=== PATIENT | male | born 1990 | race Caucasian/White ===

== ENCOUNTER 2019-03-12 09:19 | Emergency (ER) | payer MEDICAID ==
--- NOTE | 2019-03-12 09:47 | ED Physician Documentation ---
History of Present Illness - Stated complaint Stated Complaint: RECTAL BLEEDING - Chief complaint Chief Complaint: General - History obtained from History obtained from: Patient - Additonal information Additional information: Patient is a previously healthy 29-year-old male presenting with bright red blood per rectum over the past several days with large amount just prior to arrival. Patient does report pain with bowel movements. Patient denies known hemorrhoids, other inciting incident, trauma, or insertion of object into his bottom. Patient denies abdominal pain, nausea, vomiting, urinary changes, fever, chills, or other concerns. Patient denies further use of medications [id number] or prescription. No other improving or worsening factors noted. Review of Systems Constitutional: denies: Fever GI: reports: Bloody / black stool. denies: Abdominal Pain, Vomiting, Diarrhea : denies: Dysuria PD PAST MEDICAL HISTORY - Past Medical History Cardiovascular: None Respiratory: None Neuro: Headaches, Other Endocrine/Autoimmune: None GI: None : None HEENT: None Psych: None Musculoskeletal: None Derm: None Other Past Medical History: pt describes "blackouts" with headache occasionally - Past Surgical History Past Surgical History: No - Present Medications Home Medications: Ambulatory Orders Medication Instructions Recorded Confirmed Hydrocortisone/Pramoxine [Analpram 1 strip RC QID PRN 14 Days 03/12/19 Hc 2.5% Crm Singles] cream.appl - Allergies Allergies/Adverse Reactions: Allergies Allergy/AdvReac Type Severity Reaction Status Date / Time No Known Drug Allergies Allergy Verified 03/12/19 09:25 - Social History Does the pt smoke?: Yes Smoking Status: Current some day smoker Does the pt drink ETOH?: Yes ETOH Use: Beer Does the pt have substance abuse?: Yes Substance Use and Type: Marijuana - Immunizations Immunizations are current?: No Immunizations: No immun - POLST Patient has POLST: No PD ED PE NORMAL - Vitals Vital signs reviewed: Yes - General General: Alert and oriented X 3, No acute distress, Well developed/nourished - HEENT HEENT: Atraumatic, Moist mucous membranes - Cardiac Cardiac: RRR, No murmur - Respiratory Respiratory: No respiratory distress, Clear bilaterally - Abdomen Abdomen: Normal bowel sounds, Soft, Non tender, Non distended - Male 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 ) - Derm Derm: Normal color, Warm and dry, No rash - Extremities Extremities: No deformity, No tenderness to palpate - Neuro Neuro: Alert and oriented X 3, No motor deficit, No sensory deficit - Psych Psych: Normal mood, Normal affect Results - Vitals Vitals: Vital Signs - 24 hr 03/12/19 03/12/19 03/12/19 09:21 12:20 13:58 Temperature 36.6 C 36.7 C 36.6 C Heart Rate 93 73 70 Respiratory 14 20 16 Rate Blood Pressure 132/88 H 141/97 H 151/90 H O2 Saturation 98 100 100 Oxygen O2 Source Room air - Labs Labs: Laboratory Tests 03/12/19 03/12/19 03/12/19 10:19 10:19 10:19 WBC 5.8 RBC 5.29 Hgb 16.4 Hct 47.6 MCV 90.0 MCH 31.0 MCHC 34.5 RDW 11.8 L Plt Count 236 MPV 10.6 Neut # (Auto) 3.8 Lymph # (Auto) 1.1 L Ida # (Auto) 0.6 Eos # (Auto) 0.2 Baso # (Auto) 0.0 Absolute Nucleated RBC 0.00 Nucleated RBC % 0.0 PT 11.5 INR 1.0 APTT 33.1 Sodium Potassium Chloride Carbon Dioxide Anion Gap BUN Creatinine Estimated GFR (MDRD) Glucose Calcium Total Bilirubin AST ALT Alkaline Phosphatase Total Protein Albumin Globulin Albumin/Globulin Ratio Lipase Urine Color Urine Clarity Urine pH Ur Specific [place] Urine Protein Urine Glucose (UA) Urine Ketones Urine Occult Blood Urine Nitrite Urine Bilirubin Urine Urobilinogen Ur Leukocyte Esterase Ur Microscopic Review Urine Culture Comments Blood Type O POSITIVE Blood Type Recheck Antibody Screen NEGATIVE 03/12/19 03/12/19 03/12/19 10: 10:25 11:40 WBC RBC Hgb Hct MCV MCH MCHC RDW Plt Count MPV Neut # (Auto) Lymph # (Auto) Ida # (Auto) Eos # (Auto) Baso # (Auto) Absolute Nucleated RBC Nucleated RBC % PT INR APTT Sodium 140 Potassium 4.2 Chloride 104 Carbon Dioxide 24 Anion Gap 12.0 BUN 21 H Creatinine 0.9 Estimated GFR (MDRD) 99 Glucose 94 Calcium 9.5 Total Bilirubin 0.9 AST 29 ALT 33 Alkaline Phosphatase 74 Total Protein 7.5 Albumin 4.4 Globulin 3.1 Albumin/Globulin Ratio 1.4 Lipase 51 Urine Color YELLOW Urine Clarity CLEAR Urine pH 6.0 Ur Specific [place] 1.015 Urine Protein NEGATIVE Urine Glucose (UA) NEGATIVE Urine Ketones NEGATIVE Urine Occult Blood NEGATIVE Urine Nitrite NEGATIVE Urine Bilirubin NEGATIVE Urine Urobilinogen 0.2 (NORMAL) Ur Leukocyte Esterase NEGATIVE Ur Microscopic Review NOT INDICATED Urine Culture Comments NOT INDICATED Blood Type Blood Type Recheck O POSITIVE Antibody Screen PD MEDICAL DECISION MAKING - ED course Complexity details: reviewed results, re-evaluated patient, considered differential, d/w patient ED course: Patient presenting with bright red blood per rectum and on exam, has but not erythematous or thrombosed hemorrhoid tender present which is likely the source of bleeding. At this time, have lower suspicion for GI bleed given patient's lack of significant risk factors, abdominal pain, or other abdominal complaints. Also have lower suspicion for intra-abdominal pathology such as diverticulitis, mass, small bowel obstruction, appendicitis, gallbladder disease, renal disease, UTI, but considered did obtain screening lab work and urinalysis which returned unremarkable. Also obtain CT abdomen/pelvis to further evaluate for possible intra-abdominal or pelvic pathology including more complicated hemorrhoid, fistula or abscess. No evidence of such or other acute pathology on CT.Discussed results and recommendations including use of Analpram, other supportive cares, return precautions, appropriate follow-up with patient.Patient voiced understanding and comfortable with discharge plan. Departure - Departure Disposition: 01 Home, Self Care Clinical Impression: Hemorrhoids Condition: Good Instructions: ED Hemorrhoids Follow-Up: your,doctor [Other] - Within 3 Days Prescriptions: Hydrocortisone/Pramoxine [Analpram Hc 2.5% Crm Singles] 1 strip RC QID PRN 14 Days cream.appl PRN Reason: Pain Comments: Please keep area clean and dry using running water and soap to clean. May pat dry. Apply Analpram for pain relief as needed. May also try sitz bath or oatmeal baths. Recommend use of ibuprofen/Tylenol as well and as needed for pain and inflammation relief. Recommend use of stool softener or laxative until resolution of hemorrhoid to avoid hard stools or constipation. Follow-up with primary care physician in next 2 to 3 days and return to ED sooner if experience worsening symptoms or other concerns. Discharge Date/Time: 03/12/19 14:10
[2019-03-12] MEDS ORDERED: SODIUM CHLORIDE 0.9% 1,000 ML IV ONE (10:05)
[2019-03-12 10:34] LABS: BASOPHILS % (AUTO) 0.5 %; EOSINOPHILS # (AUTO) 0.2 10^3/uL (0.0-0.7); EOSINOPHILS % (AUTO) 2.6 %; HGB - HEMOGLOBIN 16.4 g/dL (14.0-18.0); LYMPHOCYTES # (AUTO) 1.1 10^3/uL (1.5-3.5); LYMPHOCYTES % (AUTO) 19.5 %; MEAN CORPUSCULAR HGB CONC 34.5 g/dL (32.0-36.0); MEAN PLATELET VOLUME 10.6 fL (7.4-11.4); MONOCYTES # (AUTO) 0.6 10^3/uL (0.0-1.0); NEUTROPHILS # (AUTO) 3.8 10^3/uL (1.5-6.6); NEUTROPHILS % (AUTO) 65.9 %; PLT - PLATELET COUNT 236 10^3/uL (130-450); RED BLOOD COUNT 5.29 10^6/uL (4.70-6.10); RED CELL DISTRIBUTION WIDTH 11.8 % (12.0-15.0); WHITE BLOOD COUNT 5.8 x10^3/uL (4.8-10.8)
[2019-03-12 10:46] LABS: PT - PROTHROMBIN TIME 11.5 secs (9.9-12.6)
[2019-03-12 10:50] LABS: ALBUMIN 4.4 g/dL (3.2-5.5); ALBUMIN/GLOBULIN RATIO 1.4 (1.0-2.2); BILIRUBIN,TOTAL 0.9 mg/dL (0.2-1.0); CALCIUM 9.5 mg/dL (8.5-10.3); CREATININE 0.9 mg/dL (0.6-1.2); TOTAL PROTEIN 7.5 g/dL (6.7-8.2)
[2019-03-12 10:53] LABS: PARTIAL THROMBOPLASTIN TIME 33.1 secs (24.9-33.3)
[2019-03-12] MEDS ORDERED: IOVERSOL 320 100 ML VIAL IVP ONE ×2 (11:40→15:16)
[2019-03-12 12:07] LABS: BILIRUBIN,URINE NEGATIVE (NEGATIVE); CLARITY,URINE CLEAR (CLEAR); GLUCOSE, URINE (UA) NEGATIVE (NEGATIVE); KETONES,URINE (UA) NEGATIVE (NEGATIVE); LEUKOCYTE ESTERASE, URINE NEGATIVE (NEGATIVE); NITRITE,URINE NEGATIVE (NEGATIVE); OCCULT BLOOD,URINE NEGATIVE (NEGATIVE); PROTEIN,URINE NEGATIVE (NEGATIVE); UROBILINOGEN,URINE 0.2 (NORMAL) E.U./dL (NORMAL)
--- NOTE | 2019-03-12 12:39 | CT Report ---
Reason: Rectal bleed, tender mass at rectum, burton hemorr Procedure Date: 03/12/2019 Accession Number: [id number] / [id number] Procedure: CT - Abdomen/Pelvis W CPT Code: FULL RESULT: EXAM: CT ABDOMEN AND PELVIS EXAM DATE: 03/12/2019 12:12 PM. CLINICAL HISTORY: Rectal bleed, tender mass at rectum, likely hemorrhoid. COMPARISONS: None. TECHNIQUE: Routine helical CT imaging was performed through the abdomen and pelvis. IV contrast: 100 mL Optiray 320. Enteric contrast: No. Reconstructions: Coronal and sagittal. In accordance with CT protocol optimization, one or more of the following dose reduction techniques were utilized for this exam: automated exposure control, adjustment of mA and/or KV based on patient size, or use of iterative reconstructive technique. FINDINGS: Lung Bases: Unremarkable. Liver: Normal. No masses. Gallbladder/Bile Ducts: Unremarkable. Spleen: Normal. Pancreas: Normal. Adrenal Glands: Normal. Kidneys: Normal. No masses or hydronephrosis. Peritoneal Cavity/Bowel: Normal. No free fluid, free air or adenopathy. No masses or acute inflammatory process. The appendix is well visualized and normal. Pelvic Organs: Normal. The bladder and visualized pelvic organs are within normal limits. Vasculature: No aneurysms or other significant abnormality. Bones: No significant abnormality. Other: None. IMPRESSION: Normal abdomen and pelvis CT. RADIA
[2019-03-12 13:59] VITALS: BP 151/90
== END 2019-03-12 14:10 | disposition home or self-care (01) ==
LOC: ED 09:19
DX: K64.4 Residual hemorrhoidal skin tags (principal); F17.200 Nicotine dependence, unspecified, uncomplicated
CPT/HCPCS: 36415; 74177; 80053; 81003; 83690; 85025; 85610; 85730; 86850; 86900; 86901; 96360; 96361; 99283; 99284; Q9967; 81001; 87086

== ENCOUNTER 2020-11-10 14:23 | Emergency (ER) | payer MEDICAID ==
[2020-11-10 14:33] VITALS: BP 128/82
--- NOTE | 2020-11-10 14:53 | ED Physician Documentation ---
History of Present Illness - Stated complaint Stated Complaint: MALE - Chief complaint Chief Complaint: General - History obtained from History obtained from: Patient - History of Present Illness Timing: How many years ago (3-4) - Additonal information Additional information: 30-year-old male has had a lump in the right groin area that is worse with lifting and he has had some stinging recently when he has been doing some heavy lifting. He has had this lump in this area for years. 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 He is also concerned about a wart on his index finger. He denies nausea or abdominal pain associated with this. Review of Systems Constitutional: denies: Fever Eyes: denies: Decreased vision Ears: denies: Ear pain Nose: denies: Congestion Throat: denies: Sore throat Cardiac: denies: Chest pain / pressure Respiratory: denies: Cough GI: denies: Abdominal Pain, Nausea, Vomiting : reports: Other (There is a hernia mass in the right inguinal.). denies: Dysuria, Frequency Skin: reports: Lesions (wart to the right index) Musculoskeletal: denies: Neck pain, Back pain, Extremity pain Neurologic: denies: Generalized weakness, Focal weakness, Numbness PD PAST MEDICAL HISTORY - Past Medical History Cardiovascular: None Respiratory: None Neuro: Headaches, Other Endocrine/Autoimmune: None GI: None : None HEENT: None Psych: None Musculoskeletal: None Derm: None - Past Surgical History Past Surgical History: No - Present Medications Home Medications: Ambulatory Orders Medication Instructions Recorded Confirmed Hydrocortisone/Pramoxine [Analpram 1 strip RC QID PRN 14 Days 03/12/19 Hc 2.5% Crm Singles] cream.appl - Allergies Allergies/Adverse Reactions: Allergies Allergy/AdvReac Type Severity Reaction Status Date / Time No Known Drug Allergies Allergy Verified 11/10/20 14:29 - Social History Does the pt smoke?: Yes Smoking Status: Current some day smoker Does the pt drink ETOH?: Yes Does the pt have substance abuse?: Yes - Immunizations Immunizations are current?: No Immunizations: No immun - POLST Patient has POLST: No PD ED PE NORMAL - Vitals Vital signs reviewed: Yes (hypertensive ) - General General: Alert and oriented X 3, No acute distress, Well developed/nourished - HEENT HEENT: Atraumatic, PERRL, EOMI - Respiratory Respiratory: No respiratory distress - Male Male : Other (There is a right inguinal hernia that is soft and reducible. It does not stay reduced and feels like fat. It is not painful for the patient. ) - Derm Derm: Normal color, Warm and dry, No rash - Extremities Extremities: No deformity, No edema - Neuro Neuro: Alert and oriented X 3, clinical staff rn 2-12 intact, No motor deficit, No sensory deficit, Normal speech Eye Opening: Spontaneous Motor: Obeys Commands Verbal: Oriented GCS Score: 15 - Psych Psych: Normal mood, Normal affect Results - Vitals Vitals: Vital Signs - 24 hr 11/10/20 14:29 Temperature 36.6 C Heart Rate 50 L Respiratory 16 Rate Blood Pressure 128/82 H O2 Saturation 100 Oxygen O2 Source Room air PD MEDICAL DECISION MAKING - ED course Complexity details: considered differential, d/w patient ED course: 30-year-old male with a right inguinal hernia that is not incarcerated it feels like it has fat in it and it reduces but spontaneously comes back out. I have asked the patient to talk to the surgeon about possible surgical repair and we will refer him to Dr. Glez. We do not have treatment for warts available. Departure - Departure Disposition: 01 Home, Self Care Clinical Impression: Right inguinal hernia, Viral wart on finger Condition: Stable Instructions: ED Hernia Inguinal, ED Warts Non Genital Follow-Up: Benny Glez MD [Provider Admit Priv/Credential] - [facility] [place] [Provider Group] Comments: The inguinal hernia you have is not "incarcerated" and the repair of this is elective. Talk to the surgeon about fixing this as it seems you may benefit from a surgery. The warts are treated at the clinic and the recommendation is to follow up with [facility] [place].
== END 2020-11-10 15:18 | disposition home or self-care (01) ==
LOC: ED 14:23
DX: K40.90 Unilateral inguinal hernia, without obstruction or gangrene, not specified as recurrent (principal); B07.9 Viral wart, unspecified; F17.200 Nicotine dependence, unspecified, uncomplicated
CPT/HCPCS: 99282; 99284

== ENCOUNTER 2020-12-09 13:25 | Outpatient (CLI) | payer MEDICAID | END 2020-12-09 13:26 | disposition home or self-care (01) | LOC: COV 13:25 | PROVIDERS: ATTEND Surgery | DX: Z01.812 Encounter for preprocedural laboratory examination (principal); K40.90 Unilateral inguinal hernia, without obstruction or gangrene, not specified as recurrent; Z20.822 Contact with and (suspected) exposure to COVID-19 ==

== ENCOUNTER 2020-12-13 08:25 | Day surgery (SDC) | payer MEDICAID ==
[~2020-12-13 08:25] MED LIST: ceFAZolin 2 GM/50 ML 2 GM/50 ML BAG IV ONE
[2020-12-13] MEDS ORDERED: LACTATED RINGERS 1,000 ML IV ONE ×2 (08:28→14:10)
[2020-12-13] MEDS ORDERED: HYDROmorphone 0.5 MG/0.5 ML SYRINGE IVP PRN (09:07)
[2020-12-13] MEDS ORDERED: NALOXONE 0.4 MG/ML VIAL IVP PRN (09:07)
[2020-12-13] MEDS ORDERED: ATROPINE ABBOJECT 1 MG/10 ML SYRINGE IVP PRN (09:07)
[2020-12-13] MEDS ORDERED: MORPHINE 2 MG/ML CARPUJECT IVP PRN (09:07)
[2020-12-13] MEDS ORDERED: ONDANSETRON 4 MG/2 ML VIAL IVP PRN (09:07)
[2020-12-13] MEDS ORDERED: fentaNYL 100 MCG/2 ML VIAL IVP PRN (09:07)
[2020-12-13] MEDS ORDERED: METOCLOPRAMIDE 10 MG/2 ML VIAL IVP PRN (09:07)
[2020-12-13] MEDS ORDERED: ePHEDrine 50 MG/ML VIAL IVP PRN (09:07)
--- NOTE | 2020-12-13 09:07 | ANESTHESIA ---
Pre-Anesthesia VS, & Labs - Diagnosis R Inguinal hernia - Procedure R inguinal hernia repair Vital Signs: Temp Pulse Resp BP Pulse Ox 36.2 C L 63 16 136/83 H 97 12/13/20 08:34 12/13/20 08:34 12/13/20 08:34 12/13/20 08:34 12/13/20 08:34 Height: 6 ft Weight (kg): 82 kg Body Mass Index: 24.5 BMI Classification: Healthy weight - NPO Other (coffee with creamer 0700) Home Medications and Allergies No Known Home Medications 11/10/20 Allergies/Adverse Reactions: Allergies Allergy/AdvReac Type Severity Reaction Status Date / Time No Known Drug Allergies Allergy Verified 11/10/20 14:29 Anes History & Medical History - Anesthetic History Anesthesia Complications: reports: No previous complications Family history of Anesthesia Complications: Denies Family history of Malignant Hyperthermia: Denies - Medical History Cardiovascular: reports: None Pulmonary: reports: None Gastrointestinal: reports: None Urinary: reports: None Neuro: reports: Headaches, Other Musculoskeletal: reports: None Endocrine/Autoimmune: reports: None Blood Disorders: reports: None Skin: reports: None Smoking Status: Current some day smoker Exam General: Alert, Oriented x3, Cooperative Dental: WNL Mouth Openin Fingerbreadth Neck Mobility: Normal Mallampati classification: I, II Thyromental Distance: 4-6 cm Respiratory: Lungs clear Cardiovascular: Regular rate Abdomen: Normal bowel sounds Extremities: No clubbing Neurological: Normal gait Mental/Cognitive Status: Alert/Oriented X3 Cognitive Status: Within normal limits Plan Anesthesia Type: General Consent for Procedure(s) Verified and Reviewed: Yes Code Status: Attempt Resuscitation ASA classification: 1-Healthy patient Is this case an emergency?: No
[2020-12-13] MEDS ORDERED: LACTATED RINGERS 1,000 ML IV SCH (10:00)
[2020-12-13] MEDS ORDERED: BUPIVACAINE 0.25% PF 30 ML VIAL ONE ×2 (10:24→13:14)
[2020-12-13] MEDS ORDERED: fentaNYL 100 MCG/2 ML VIAL ONE (12:34)
[2020-12-13] MEDS ORDERED: MIDAZOLAM 2 MG/2 ML VIAL ONE (12:34)
[2020-12-13] MEDS ORDERED: PROPOFOL 200 MG/20 ML VIAL IVP ONE (12:46)
[2020-12-13] MEDS ORDERED: BUPIVACAINE 0.25% PF 30 ML VIAL SUBQ ONE (13:06)
[2020-12-13] MEDS ORDERED: GLYCOPYRROLATE 1 MG/5 ML VIAL ONE (13:15)
[2020-12-13] MEDS ORDERED: ONDANSETRON 4 MG/2 ML VIAL ONE (13:20)
[2020-12-13] MEDS ORDERED: DEXAMETHASONE 4 MG/ML VIAL ONE (13:20)
[2020-12-13] MEDS ORDERED: HYDROcod/ACETAM 5/325 MG TABLET PO PRN (14:15)
[2020-12-13] MEDS ORDERED: oxyCODONE 5 MG TABLET PO PRN (14:15)
--- NOTE | 2020-12-13 14:15 | OPERATIVE REPORT ---
Operative Report - General Procedure Date: 12/13/20 Planned Procedure: open right inguinal hernia Pre-Op Diagnosis: right inguinal hernia Procedure Performed: open right inguinal hernia Post Op Diagnosis: large direct - Procedure Note Primary Surgeon: susan elias Anesthesia Technique: General LMA, Local Complications: none
[2020-12-13 15:42] VITALS: BP 126/80
--- NOTE | 2020-12-13 16:40 | ANESTHESIA POST OP EVALUATION ---
Anesthesia Post Eval - Post Anesthesia Eval Vitals: Last Vital Signs Temp 37 C 12/13/20 15:30 Pulse 84 12/13/20 15:30 Resp 14 12/13/20 15:30 BP 126/80 12/13/20 15:30 Pulse Ox 99 12/13/20 15:30 CV Function Including HR & BP: positive: Stable Pain Control: positive: Satisfactory Nausea & Vomiting: positive: Negative Mental Status: positive: Baseline Respiratory Status: Airway Patent Hydration Status: Satisfactory Anesthesia Complications: positive: None
--- NOTE | 2020-12-14 09:58 | OPERATIVE REPORT ---
DATE OF SERVICE: 12/13/2020 Physician: Benny Glez MD PREOPERATIVE DIAGNOSIS: Right inguinal hernia. POSTOPERATIVE DIAGNOSIS: Right inguinal hernia, large, direct. PROCEDURE: Open right inguinal hernia repair with mesh, Kameron. SURGEON: Benny Glez MD TAPE CUTTER: None. ANESTHESIA 1. Laryngeal mask anesthesia. 2. Local anesthesia with Marcaine. COMPLICATIONS: None. SPECIMEN: Branching and scarred ilioinguinal nerve removed, however not sent for pathology. ESTIMATED BLOOD LOSS: None. COMPLICATIONS: None. FINDINGS: A very large direct defect and scarred branching ilioinguinal nerve. No indirect hernia. INDICATIONS FOR PROCEDURE: The patient is a 30-year-old active gentleman with a very symptomatic right inguinal hernia for many years. He states he used to have significant burning. This has improved. His hernia bulge interferes with his ability to function daily. He presents for open repair with mesh. Risks discussed, alternatives discussed, all questions answered, and consent obtained. DETAILS OF PROCEDURE: The patient was properly identified, brought to the operating room, and placed in supine position. Laryngeal mask anesthesia was induced. Sequential compression devices were placed. He was prepped and draped in a sterile fashion and given preoperative antibiotics. Local anesthetic was given throughout the procedure. A 5 cm incision was made in the direction of Mireya's lines just cephalad of the pubic tubercle. Dissection proceeded with cutting current. The superficial epigastric vein was identified, clamped, divided, and tied with 3-0 Vicryl. Dissection proceeded down to the aponeurosis. This was opened in the direction of its fibers, extending to the external ring. He had a very thin long ilioinguinal nerve, which branched and was scarred to the aponeurosis and the external ring. The nerve was excised back to musculature. The cord structures were then mobilized and brought up. He had a very large direct defect with bulge measuring at least 6 x 3-4 cm. The large direct defect was mobilized away from the surrounding tissue. The direct defect and floor were repaired with a 2-0 silk pursestring suture with care not to entrap the genitofemoral nerve or underlying structures. He had scar tissue involving the cremasteric muscle. This was removed. There was no indirect hernia sac. A polypropylene mesh, medium weight, was cut to size and with tails. It was secured with multiple interrupted 0 Ethibond sutures and placed in Kameron fashion. The sutures were placed over the pubic tubercle along the shelving border of Poupart's ligament and medially along musculature or fascia of the internal oblique. The medial tail of the mesh was secured to the shelving border of Poupart's ligament with 2 interrupted 0 Ethibond sutures. An additional suture was placed in the crotch of the mesh, recreating internal ring of appropriate size. The iliohypogastric nerve lay loose in between interrupted sutures medially. The aponeurosis was closed with a running 2-0 Vicryl suture. Soo's was closed with interrupted 3-0 Vicryl suture. Skin was closed with a running 4-0 Monocryl subcuticular suture. Dressing was applied. He tolerated the procedure well. TD: 12/14/2020 09:38 j RUPAL
== END 2020-12-13 08:26 | disposition home or self-care (01) ==
LOC: SDS 08:25
PROVIDERS: ATTEND Surgery
DX: K40.90 Unilateral inguinal hernia, without obstruction or gangrene, not specified as recurrent (principal); F17.200 Nicotine dependence, unspecified, uncomplicated
CPT/HCPCS: 49505; C1781; J0690; J7120

== ENCOUNTER 2021-03-11 01:01 | Outpatient (CLI) | payer MEDICAID | END 2021-03-11 01:02 | disposition critical access hospital (66) | LOC: EMS 01:01 | DX: S01.511A Laceration without foreign body of lip, initial encounter (principal); S40.011A Contusion of right shoulder, initial encounter; V89.2XXA Person injured in unspecified motor-vehicle accident, traffic, initial encounter; Y93.89 Activity, other specified; Y92.410 Unspecified street and highway as the place of occurrence of the external cause | CPT/HCPCS: A0425; A0429; A0999 ==

== ENCOUNTER 2021-03-11 01:25 | Emergency (ER) | payer MEDICAID ==
[2021-03-11] MEDS ORDERED: TETANUS/DIPHTHERIA/PERTUSSIS 0.5 ML SYRINGE IM ONE (02:19)
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
[2021-03-11] MEDS ORDERED: KETOROLAC 30 MG/ML VIAL IM STA (02:26)
[2021-03-11 04:16] VITALS: BP 126/78
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
== END 2021-03-11 04:20 | disposition home or self-care (01) ==
LOC: EDBD → EDUNIT# → ED 01:25
DX: S80.812A Abrasion, left lower leg, initial encounter (principal); S80.811A Abrasion, right lower leg, initial encounter; S80.12XA Contusion of left lower leg, initial encounter; S80.11XA Contusion of right lower leg, initial encounter; S40.011A Contusion of right shoulder, initial encounter; M54.2 Cervicalgia; R07.9 Chest pain, unspecified; K08.89 Other specified disorders of teeth and supporting structures; V47.6XXA Car passenger injured in collision with fixed or stationary object in traffic accident, initial encounter; W22.19XA Striking against or struck by other automobile airbag, initial encounter; Y92.410 Unspecified street and highway as the place of occurrence of the external cause; Z23 Encounter for immunization; F17.200 Nicotine dependence, unspecified, uncomplicated
CPT/HCPCS: 36415; 90471; 96372; 99283; 99284

== ENCOUNTER 2021-04-14 12:57 | Outpatient (CLI) | payer MEDICAID | END 2021-04-14 12:58 | disposition short-term general hospital (02) | LOC: EMS 12:57 | DX: S59.912A Unspecified injury of left forearm, initial encounter (principal); M25.552 Pain in left hip; W12.XXXA Fall on and from scaffolding, initial encounter; Y93.89 Activity, other specified; Y92.008 Other place in unspecified non-institutional (private) residence as the place of occurrence of the external cause; Y99.0 Civilian activity done for income or pay | CPT/HCPCS: A0425; A0427; A0999 ==